=== PATIENT | female | born 1995 | race Caucasian/White ===

== ENCOUNTER 2019-03-05 01:34 | Emergency (ER) | payer OTHER ==
[~2019-03-05] VITALS: Ht 157.5 cm; Wt 56.7 kg
[2019-03-05 01:37] VITALS: BP 126/84; Ht 157.5 cm; Wt 56.7 kg
== END 2019-03-05 02:56 | disposition home or self-care (01) ==
LOC: ED 01:34
DX: L50.9 Urticaria, unspecified (principal); Z91.011 Allergy to milk products
CPT/HCPCS: Q0163

== ENCOUNTER 2019-10-10 14:31 | Emergency (ER) | payer MEDICAID ==
[~2019-10-10] VITALS: Ht 157.5 cm; Wt 54.9 kg
[2019-10-10 14:36] VITALS: Ht 157.5 cm; Wt 54.9 kg
[2019-10-10 15:01] LABS: BASOPHIL % 0.2 % (0-2); PLATELET COUNT 204 x10^3mcL (130-400)
[2019-10-10 15:11] LABS: RED CELL DISTRIBUTION WIDTH 14.6 % (11.5-14.5)
[2019-10-10 16:18] LABS: microscopic required? YES; urine erythrocyte 3+ (NEGATIVE)
[2019-10-10 19:42] VITALS: BP 108/60
== END 2019-10-10 19:42 | disposition home or self-care (01) ==
LOC: ED 14:31
PROVIDERS: Emergency Medicine
DX: O20.0 Threatened abortion (principal); Z3A.12 12 weeks gestation of pregnancy
CPT/HCPCS: 36415

== ENCOUNTER 2019-10-12 15:32 | Emergency (ER) | payer MEDICAID ==
[~2019-10-12] VITALS: Ht 152.4 cm; Wt 54.4 kg
[2019-10-12 15:35] VITALS: Ht 152.4 cm; Wt 54.4 kg
[2019-10-12 15:59] LABS: BASOPHIL % 0.7 % (0-2); PLATELET COUNT 214 x10^3mcL (130-400); RED CELL DISTRIBUTION WIDTH 14.5 % (11.5-14.5)
[2019-10-12 17:08] VITALS: BP 94/49
== END 2019-10-12 17:08 | disposition home or self-care (01) ==
LOC: ED 15:32
PROVIDERS: Emergency Medicine
DX: O02.0 Blighted ovum and nonhydatidiform mole (principal); Z91.011 Allergy to milk products; Z3A.01 Less than 8 weeks gestation of pregnancy
CPT/HCPCS: 36415

== ENCOUNTER 2019-10-13 17:39 | Emergency (ER) | payer MEDICAID ==
[~2019-10-13] VITALS: Ht 157.5 cm; Wt 54.0 kg
[2019-10-13 17:48] VITALS: Ht 157.5 cm; Wt 54.0 kg
[2019-10-13 18:54] LABS: BASOPHIL % 0.2 % (0-2); PLATELET COUNT 197 x10^3mcL (130-400); RED CELL DISTRIBUTION WIDTH 14.3 % (11.5-14.5)
[2019-10-13 20:44] VITALS: BP 104/52
== END 2019-10-13 22:12 | disposition home or self-care (01) ==
LOC: ED 17:39
PROVIDERS: Emergency Medicine
DX: O03.4 Incomplete spontaneous abortion without complication (principal); Z91.011 Allergy to milk products
CPT/HCPCS: 36415; J7030; Q0092